=== PATIENT | female | born 1975 | race Two or more races ===

== ENCOUNTER 2018-02-07 09:12 | Outpatient (CLI) | payer OTHER ==
[~2018-02-07 09:12] MED LIST: COZAAR50 MG; DOLOGESIC CAPSU1 CAP PO; MEDROL4 MG PO; METFORMIN HCL500 MG
== END 2018-02-07 09:33 | disposition home or self-care (01) ==
LOC: MAMO-SONO 09:12
DX: Z12.31 Encounter for screening mammogram for malignant neoplasm of breast (principal); N64.89 Other specified disorders of breast; N92.0 Excessive and frequent menstruation with regular cycle

== ENCOUNTER → 2018-02-25 | Outpatient (CLI) | payer OTHER | END | disposition home or self-care (01) | LOC: RAD 501 09:28 | DX: Z13.6 Encounter for screening for cardiovascular disorders (principal) ==

== ENCOUNTER 2018-03-07 05:20 | Day surgery (SDC) | payer OTHER ==
[~2018-03-07 05:20] MED LIST changes: +LANTUS; +NOVOLIN N100 UNIT/1
== END 2018-03-07 14:20 | disposition home or self-care (01) ==
LOC: CIR.AMB 05:20
DX: N85.01 Benign endometrial hyperplasia (principal); N84.0 Polyp of corpus uteri

== ENCOUNTER 2018-05-28 09:23 | Outpatient (CLI) | payer OTHER | END 2018-05-28 10:07 | disposition home or self-care (01) | LOC: RAD 09:23 | DX: Z13.6 Encounter for screening for cardiovascular disorders (principal) ==

== ENCOUNTER 2018-06-05 09:15 | Inpatient (IN) | payer OTHER ==
[~2018-06-05] VITALS: Ht 167.6 cm; Wt 104.3 kg
[~2018-06-05 09:15] MED LIST changes: +NOVO; +NOVOLOG
[2018-06-10] MEDS ORDERED: CEFUROXIME500 MG PO (16:21)
[2018-06-10] MEDS ORDERED: MOTRIN IB200 MG PO (16:21)
== END 2018-06-10 16:24 | DRG 743 ==
LOC: O/R 06-06 05:43 → OB/GYN 06-06 07:00
PROVIDERS: ADMIT Specialist
PROC: 0UT70ZZ Resection of Bilateral Fallopian Tubes, Open Approach (ICD-10-PCS; 2018-06-06)
PROC: 0UT90ZZ Resection of Uterus, Open Approach (ICD-10-PCS; principal; 2018-06-06 07:00)
DX: N80.0 Endometriosis of uterus (principal); N84.0 Polyp of corpus uteri; E11.9 Type 2 diabetes mellitus without complications; I10 Essential (primary) hypertension; R50.82 Postprocedural fever

== ENCOUNTER 2018-07-01 10:57 | Outpatient (CLI) | payer OTHER ==
[~2018-07-01 10:57] MED LIST changes: +CEFUROXIME500 MG PO; +MOTRIN IB200 MG PO
== END 2018-07-01 11:05 | disposition home or self-care (01) ==
LOC: RAD 501 10:57
DX: E11.65 Type 2 diabetes mellitus with hyperglycemia (principal); E66.9 Obesity, unspecified; M54.5 Low back pain; R30.0 Dysuria; M62.830 Muscle spasm of back; R06.02 Shortness of breath

== ENCOUNTER 2020-09-08 09:12 | Emergency (ER) | payer OTHER ==
[~2020-09-08] VITALS: Ht 165.1 cm; Wt 104.3 kg
== END 2020-09-08 12:48 | disposition home or self-care (01) ==
LOC: ER 09:12
DX: S60.212A Contusion of left wrist, initial encounter (principal); W18.09XA Striking against other object with subsequent fall, initial encounter; Y93.89 Activity, other specified; Y92.89 Other specified places as the place of occurrence of the external cause; Y99.8 Other external cause status

== ENCOUNTER 2020-09-20 06:38 | Day surgery (SDC) | payer OTHER ==
[2020-09-20] MEDS ORDERED: PERCOCET 5-3251 EACH PO (15:20)
[2020-09-20] MEDS ORDERED: DUI500 PO (15:20)
[2020-09-20] MEDS ORDERED: ALEVE220 M1 PO (15:20)
== END 2020-09-20 19:05 | disposition home or self-care (01) ==
LOC: CIR.AMB 06:38
PROVIDERS: ATTEND Orthopaedic Surgery
DX: S52.532A Colles' fracture of left radius, initial encounter for closed fracture (principal); S52.692A Other fracture of lower end of left ulna, initial encounter for closed fracture; Z20.822 Contact with and (suspected) exposure to COVID-19
CPT/HCPCS: 25609; 20902; 25652; C1776

== ENCOUNTER 2021-01-19 21:33 | Emergency (ER) | payer OTHER ==
[~2021-01-19] VITALS: Ht 167.6 cm; Wt 104.3 kg
[~2021-01-19 21:33] MED LIST changes: +ALEVE220 M1 PO; +DUI500 PO; +PERCOCET 5-3251 EACH PO
[2021-01-19] MEDS ORDERED: LANTUS SOL100 UNIT/1 SQ (21:57)
[2021-01-19] MEDS ORDERED: NOVOLOG100 UNIT/1 (21:57)
[2021-01-20] MEDS ORDERED: DICLOFENAC SODI75 MG PO (00:02)
[2021-01-20] MEDS ORDERED: NORFLEX100MG PO (00:02)
== END 2021-01-20 | disposition home or self-care (01) ==
LOC: ER 21:33
DX: M54.5 Low back pain (principal)

== ENCOUNTER 2021-02-12 19:46 | Emergency (ER) | payer OTHER ==
[~2021-02-12] VITALS: Ht 167.6 cm; Wt 104.3 kg
[~2021-02-12 19:46] MED LIST changes: +DICLOFENAC SODI75 MG PO; +LANTUS SOL100 UNIT/1 SQ; +NORFLEX100MG PO; +NOVOLOG100 UNIT/1
== END 2021-02-12 22:36 | disposition home or self-care (01) ==
LOC: ER 19:46
DX: E11.628 Type 2 diabetes mellitus with other skin complications (principal); E11.65 Type 2 diabetes mellitus with hyperglycemia; L03.032 Cellulitis of left toe; S90.122D Contusion of left lesser toe(s) without damage to nail, subsequent encounter; X58.XXXD Exposure to other specified factors, subsequent encounter

== ENCOUNTER 2022-06-07 10:00 | Outpatient (CLI) | payer OTHER | END 2022-06-07 10:14 | disposition home or self-care (01) | LOC: MAMO-SONO 10:00 | PROVIDERS: ATTEND General Practice | DX: Z12.31 Encounter for screening mammogram for malignant neoplasm of breast (principal); Z12.39 Encounter for other screening for malignant neoplasm of breast; N64.9 Disorder of breast, unspecified ==

== ENCOUNTER 2022-07-03 08:21 | Outpatient (CLI) | payer OTHER | END 2022-07-03 08:33 | disposition home or self-care (01) | LOC: MRI 08:21 | PROVIDERS: ATTEND General Practice | DX: M54.42 Lumbago with sciatica, left side (principal); M25.572 Pain in left ankle and joints of left foot; M25.571 Pain in right ankle and joints of right foot; M25.562 Pain in left knee; E13.8 Other specified diabetes mellitus with unspecified complications; E66.9 Obesity, unspecified | CPT/HCPCS: 72149 ==